=== PATIENT | female | born 1945 | race Caucasian/White ===

== ENCOUNTER 2018-12-19 10:27 | Day surgery (SDC) | payer MEDICARE, OTHER, SELFPAY ==
[2018-12-19 10:48] VITALS: BP 178/120; PULSE 124; RESP 20; TEMP 36.3; O2SAT 99; BMI 32.5
[2018-12-19] MEDS: PROPARACAINE 0.5% OPHTH SOL 2 DROPS EYE-LEFT (11:00)
[2018-12-19] MEDS: CATARACT EYE COMPOUND (10 DROPS/SYRINGE) 3 DROPS EYE-OP (11:14)
--- NOTE | 2018-12-19 11:22 | SUR.PREOP ---
Pt HR 110-130 a fib with BP 180-190s/110-120s. Md Thao at bedside administering IV versed and IV metoprolol. Pt connected to bedside surveillance system monitor to continuously monitor HR and vital signs.
[2018-12-19] MEDS: MOXIFLOXACIN INJ 5 MG/ML VIAL EYE-OP (12:06)
[2018-12-19] MEDS: LIDOCAINE 2% INJ SDV 2 ML INJ (12:06)
[2018-12-19] MEDS: PHENYLEPHRINE/LIDOCAINE VIAL (OR) 0.2 ML EYE-OP (12:06)
[2018-12-19] MEDS: BALANCED SALT IRRIG SOLN NO.2 500 ML, EPINEPHrine 1 MG IRR (12:07)
[2018-12-19] MEDS: TETRACAINE 0.5% OPHTH DROPS 4 ML 2 DROPS EYE-OP (12:07)
[2018-12-19] MEDS: BALANCED SALT IRRIG SOLN NO.2 15 ML 5 ML IRR (12:08)
[2018-12-19] MEDS: CHONDROIDTIN/SOD HYALURONATE 1.05 ML SYRINGE INTRAOCULA (12:08)
--- NOTE | 2018-12-19 12:23 | PM.OP.1 ---
Procedure & Clinicians Procedure: Cataract extraction with intraocular lens implant, left Indications: Age related nuclear cataract, left Surgeon: Stas Gottlieb Click Yes if Unassisted: Yes Anesthesia Type: MAC +/- Operative Notes Procedure in detail: The patient was brought to the operating suite. The correct patient, surgical site and lens were confirmed. 0.5 % tetracaine drops were placed in the left eye. The patient was prepped and draped in the typical sterile manner. A lid speculum was placed in the eye. 2% lidocaine was placed on the eye. A paracentesis port was created with a side-port blade. 0.1 mL of 1% preservative free lidocaine with phenylephrine was injected into the anterior chamber. Viscoelastic was injected into the anterior chamber. A 2.6mm keratome was used to create a clear corneal temporal incision. Cystotome and Utrata forceps were used to create a continuous curvilinear capsulorrhexis. Balanced salt solution was used to hydrodissect the nucleus. Phacoemulsification was used to remove the lens. The capsular bag was inflated with viscoelastic. A Rodríguez ZCBOO +23.5D lens was inserted into the capsule. Viscoelastic was removed and the wound hydrated. The wound was found to be leak free and the eye was assessed to be at normal physiologic pressure. 0.1mL Vigamox was injected into the anterior chamber. The lid speculum was removed and the patient left the operating room in excellent condition. Complications: none Post-operative Condition: stable Disposition: same day surgery
[2018-12-19 12:40] VITALS: BP 159/107; PULSE 89; RESP 16; TEMP 36.1; O2SAT 98
== END 2018-12-19 12:53 | disposition home or self-care (01) ==
LOC: OR 10:30
PROVIDERS: Family Provider Family Medicine; PCP Orthopaedic Surgery; Visit Provider Ophthalmology
PROC: (CPT 66984; principal; 2018-12-19 11:30)
DX: H25.12 Age-related nuclear cataract, left eye (principal); H35.363 Drusen (degenerative) of macula, bilateral
CPT/HCPCS: 66984; J0171; J2250; J3010

== ENCOUNTER 2019-01-02 11:56 | Day surgery (SDC) | payer MEDICARE, OTHER, SELFPAY ==
[2019-01-02 12:14] VITALS: BP 190/103; PULSE 129; RESP 12; TEMP 36.4; O2SAT 97; BMI 30.4
[2019-01-02] MEDS: PROPARACAINE 0.5% OPHTH SOL 2 DROPS EYE-OP (12:25)
[2019-01-02] MEDS: METOPROLOL TARTRATE 5 MG/5 ML INJ IV (12:28)
--- NOTE | 2019-01-02 12:31 | PM.PREOP ---
Pre-operative Note Interval Note History & Physical reviewed/Exam performed by Physician: Yes Changes to H&P: No
[2019-01-02] MEDS: CATARACT EYE COMPOUND (10 DROPS/SYRINGE) 3 DROPS EYE-OP (12:32)
[2019-01-02 12:33] VITALS: BP 172/123; PULSE 101; RESP 9; O2SAT 96
[2019-01-02 12:40] VITALS: BP 171/109; PULSE 99; RESP 14; O2SAT 95
--- NOTE | 2019-01-02 12:56 | SUR.PREOP ---
pt taken into the OR in stable condition.
[2019-01-02] MEDS: BALANCED SALT IRRIG SOLN NO.2 15 ML 5 ML IRR (13:02)
[2019-01-02] MEDS: MOXIFLOXACIN INJ 5 MG/ML VIAL EYE-OP (13:03)
[2019-01-02] MEDS: PHENYLEPHRINE/LIDOCAINE VIAL (OR) 0.2 ML EYE-OP (13:03)
[2019-01-02] MEDS: CHONDROIDTIN/SOD HYALURONATE 1.05 ML SYRINGE INTRAOCULA (13:03)
[2019-01-02] MEDS: LIDOCAINE 2% INJ SDV 2 ML INJ (13:03)
[2019-01-02] MEDS: TETRACAINE 0.5% OPHTH DROPS 4 ML 2 DROPS EYE-OP (13:03)
[2019-01-02] MEDS: BALANCED SALT IRRIG SOLN NO.2 500 ML, EPINEPHrine 1 MG IRR (13:04)
--- NOTE | 2019-01-02 13:31 | PM.OP.1 ---
Procedure & Clinicians Procedure: Cataract extraction with intraocular lens implant, right Same procedure as scheduled: Yes Indications: Age related nuclear cataract, right Surgeon: Stas Gottlieb Click Yes if Unassisted: Yes Anesthesia Type: MAC +/- Operative Notes Procedure in detail: The patient was brought to the operating suite. The correct patient, surgical site and lens were confirmed. 0.5 % tetracaine drops were placed in the right eye. The patient was prepped and draped in the typical sterile manner. A lid speculum was placed in the eye. 2% lidocaine was placed on the eye. A paracentesis port was created with a side-port blade. 0.1 mL of 1% preservative free lidocaine with phenylephrine was injected into the anterior chamber. Viscoelastic was injected into the anterior chamber. A 2.6mm keratome was used to create a clear corneal temporal incision. Cystotome and Utrata forceps were used to create a continuous curvilinear capsulorrhexis. Balanced salt solution was used to hydrodissect the nucleus. Phacoemulsification was used to remove the lens. The capsular bag was inflated with viscoelastic. A Rodríguez ZCBOO +23.5D lens was inserted into the capsule. Viscoelastic was removed and the wound hydrated. The wound was found to be leak free and the eye was assessed to be at normal physiologic pressure. 0.1mL Vigamox was injected into the anterior chamber. The lid speculum was removed and the patient left the operating room in excellent condition. Complications: none Post-operative Condition: stable Disposition: same day surgery
[2019-01-02 13:48] VITALS: BP 142/92; PULSE 81; RESP 16; TEMP 36.2; O2SAT 97
== END 2019-01-02 13:51 ==
LOC: OR 11:58
PROVIDERS: PCP Family Medicine; Visit Provider Ophthalmology
PROC: (CPT 66984; principal; 2019-01-02 13:00)
DX: H25.11 Age-related nuclear cataract, right eye (principal)
CPT/HCPCS: 66984; J0171; J2250; J3010

== ENCOUNTER → 2021-06-13 10:17 | Outpatient (CLI) | payer MEDICARE, OTHER, SELFPAY ==
[2021-06-13 15:10] LABS: COVID19 -Nasal RAPID Negative (Negative)
== END ==
PROVIDERS: PCP Family Medicine; Visit Provider Physical Medicine & Rehabilitation
DX: Z20.822 Contact with and (suspected) exposure to COVID-19 (principal)
CPT/HCPCS: 87635; C9803

== ENCOUNTER 2021-06-15 12:33 | Observation (INO) | payer MEDICARE, OTHER, SELFPAY ==
[2021-06-08 14:14] VITALS: BMI 34.0
[2021-06-14] VITALS (12 sets, daily range): BP systolic 124–178; BP diastolic 71–106; PULSE 84–114; RESP 12–22; TEMP 36.1–37; O2SAT 95–99; BMI 34.0
--- NOTE | 2021-06-14 06:42 | DI.RAD.S_ITS ---
PROCEDURE: XR KNEE RT 1TO2V INDICATIONS: TOTAL RIGHT KNEE. TECHNIQUE: 2 view(s) of the knee acquired. COMPARISON: None. FINDINGS: Bones: Patient is status post knee joint arthroplasty. Hardware components are in expected positions. Visualized bony structures are intact. Soft tissues: Overlying postoperative changes are noted. IMPRESSION: Status post right total knee arthroplasty. Dictated by: Gail Cotton M.D. on 06/14/2021 at 14:36 Approved by: Gail Cotton M.D. on 06/14/2021 at 14:36
[2021-06-14] MEDS: LACTATED RINGERS 1,000 ML 42 ML IV ×2 (07:06→08:55)
[2021-06-14] MEDS: ACETAMINOPHEN 325 MG TABLET 975 MG PO (07:07)
[2021-06-14] MEDS: VANCOMYCIN 1,000 MG/200 ML PIGGYBACK 200 MG IV (07:07)
--- NOTE | 2021-06-14 07:36 | SUR.OPER ---
Supine on padded OR bed. Pillow under head, arms secured on padded armboards <90 degree abduction. Safety belt across torso. Non-operative leg secured with tape over blanket over lower leg. Operative leg secured in DeMayo/Jad/Nathe positioner. Foam padded brace at thigh of operative leg.
--- NOTE | 2021-06-14 07:39 | PM.PREOP ---
Pre-operative Note COVID-19 COVID-19 status: Negative Interval Note History & Physical reviewed/Exam performed by Physician: Yes Changes to H&P: No H&P completed within 30 days and has changed as indicated here:: PT (inr) pending
--- NOTE | 2021-06-14 07:40 | P.OP_ITS ---
Operative Date/Time/Diagnoses Date of procedure: 06/14/21 Time of procedure: 07:55 Pre-op diagnosis: right knee oa Post-op diagnosis: same Procedure & Clinicians Procedure: right total knee arthroplasty Same procedure as scheduled: Yes Indications: The patient has had progressively worsening right knee pain with radiographic changes consistent with arthritis. Non-operative management has failed and the patient has requested total knee replacement. The risks, benefits and alternatives to surgery were discussed with the patient prior to proceeding. Risks discussed included, but were not limited to, failure to relieve pain, stiffness, infection, nerve damage, deep venous thrombosis, pulmonary embolism, stroke, coma, heart attack, permanent paralysis and , as well as the potential need for eventual revision of the prosthetic. Surgeon: Carolann Trujillo Informal Waiter/Waitress: Martha Bronson Anesthesia Type: General and Spinal Operative Notes Findings: Severe right knee osteoarthritis, acceptable balance and alignment Closure Type: primary Specimen(s): none sent Prosthetic devices, grafts, tissues, transplants, or devices: Trujillo and Nephew Journey BCS 2 size 6 femur, size 4 tibia, +12 poly, 35 mm patella Applied: drain(s) Estimated Blood Loss (mL): 250 Blood products transfused: none Tourniquet time (min): 64 Procedure in detail: The patient was seen in the pre-operative area, where the patient identified the right knee as the operative site and this was marked with my initials. The patient received pre-operative antibiotics, and was taken to the operating room and placed on the operative table in the supine position. After satisfactory anesthesia, a oncology pharmacist out was performed. The right leg was encircled with a tourniquet about the proximal thigh, and the leg was prepared from the toes to the tourniquet with ChloroPrep in the usual fashion and draped through sterile drapes. The leg was elevated and exsanguinated with Eschmark bandage and the tourniquet inflated to [250] mmHg pressure. The knee was approached through an approximately 18 cm incision centered over the patella and carried into the knee through a medial parapatellar arthrotomy. A portion of the medial and lateral meniscus was resected. Soft tissue was carefully mobilized around the patella the patella was measured with a caliper. Bone was resected from the patella and the patellar height was reconstituted with up an appropriate sized patellar component. A cover was then placed on the patella. A small amount of additional medial and lateral meniscus was resected. The tourniquet was clearly a venous tourniquet and was deflated. The distal femur was cut at 5?. A [+2] cut was used. It looked like an appropriate distal femoral cut and the cut was made without difficulty. An extramedullary guide was used for the tibial cut. 10 mm was resected off the least affected side.The tibia was prepared. The rotation was assessed. The patient was placed in extension residual medial and lateral meniscus as well as any residual bone was carefully resected. [No] additional tibia was resected. Hemostasis was achieved especially posteriorly. Additional local was injected into the posterior capsule. The extension gap was assessed and additional releases for gap balancing were performed as necessary. It was checked with the gap truck manager. The femoral component was trial was placed and the notch was finished. The rotation was assessed and the appropriate size femoral guide was placed on the distal femur and finishing cuts were made. There was no evidence of notching. The anterior, posterior and chamfer cuts were then made. The posterior osteophytes and soft tissues were then removed. The posterior capsule was injected with part of a mixture of 60 ml 0.25% Marcaine mixed with 20 ml Exparel for post operative pain control. The remainder of this mixture was injected into the capsule and subcutaneous tissues during cement curing. The tibial and femoral components were then placed and the knee placed through a range of motion. Range of motion was [0-130], with good stability throughout the range. She had some mild medial laxity but her medial collateral ligament was clearly intact. The tourniquet was inflated during cementing. The trials were then removed, and the tibia was finished. The bone was prepared with pulsatile lavage, and dried with a sponge. Cement was applied and the final prosthetics placed. Excess cement was removed during and after cement curing. A brief Betadine soak was performed. After confirming there was no extruded cement posteriorly, the final tibial insert was placed. The knee was copiously irrigated and the tourniquet deflated. Hemostasis was obtained with the Bovie cautery. A drain was placed and brought out superolaterally. The capsule was closed with interrupted nonabsorbable suture. The subcutaneous layer was closed with barbed sutures, and the skin with a running 3-0 V-Lock suture and Surgical glue. An Aquacel Ag dressing was applied and the patient was taken to recovery having tolerated the procedure well. Complications: none Post-operative Condition: stable Disposition: Acute Care Plan for aftercare: The patient will be maintained on a standard total knee replacement protocol with weight bearing as tolerated. The patient will receive warfarin and sequential compression devices for DVT prophylaxis. The patient will be discharged home when safe for the home environment.
[2021-06-14] MEDS: CEFAZOLIN 2 GM/20 ML SYRINGE IV ×2 (08:16→16:31)
[2021-06-14] MEDS: TRANEXAMIC ACID 1,000 MG VIAL 2000 MG INJ ×2 (08:17→09:46)
[2021-06-14] MEDS: BUPIVACAINE LIPOSOME 266 MG/20 ML VIAL INJ (08:28)
[2021-06-14] MEDS: BUPIVACAINE 0.25% (PF) 60 ML, EPINEPHrine 0.3 MG INJ (08:29)
[2021-06-14] MEDS: SODIUM CHLORIDE IRRIG SOLUTION 250 ML, POVIDONE-IODINE SPONGE STICKS 1 APPLIC IRR (08:30)
--- NOTE | 2021-06-14 10:43 | SUR.PHASEI ---
Report called to Bon LISA. Pt going to rm 211.
[2021-06-14] MEDS: LACTATED RINGERS 1,000 ML 100 ML IV ×2 (11:39→22:08)
--- NOTE | 2021-06-14 14:15 | PT.IIE ---
Current Diagnoses Unilateral primary osteoarthritis, right knee (06/14/21) Surgery Performed Operation Date: 06/14/21 07:45 Actual Procedures p Total Knee Arthroplasty(Right) - Carolann Trujillo MD Medical History (Last Updated 05/31/21 @ 07:54 by Margarita Reynaga RN) Afib Cardiomyopathy Diverticulitis Diverticulosis Easy bruisability Eczema HTN (hypertension) Physical Therapy Inpatient Evaluation/Re-Eval M1 PT/OT-IP Prior Functional Status Start: 06/14/21 15:56 Freq: NEEDED Status: Active Protocol: Document 06/14/21 14:15 AB (Rec: 06/14/21 16:08 AB [id number]) Medical Review Prior Functional Status Medical History Reviewed Yes Communication able to make needs known Mobility and Gait pt stated that she is independent with all mobilities and ambulation without AD indoors but tends to furniture cruise; uses SPC or walking stick for outdoor mobility Social History Household Members spouse Living Arrangements House Number of Floors (Floors) One Floor Number of Stairs To Enter/Railing? 2 steps without rails + 1 platform step to enter the house Home Environment Standard Height Toilet Home Equipment Front Wheel Walker,Straight Cane,Hand Held Shower,Grab Bars Near Toilet,Grab Bars In Shower M2 PT-IP Current Condition Start: 06/14/21 15:56 Freq: NEEDED Status: Active Protocol: Document 06/14/21 14:15 AB (Rec: 06/14/21 16:08 AB [id number]) Physical Therapy Current Condition Current Condition Evaluation Date 06/14/21 Treatment Diagnosis s/p R TKA; difficulty in walking Onset Date 06/14/21 M3 PT-IP Subjective Start: 06/14/21 15:56 Freq: NEEDED Status: Active Protocol: Document 06/14/21 14:15 AB (Rec: 06/14/21 16:08 AB [id number]) Subjective Physical Therapy Visit Type Type Initial Evaluation Visit Start Time 14:15 Visit Stop Time 15:05 Total Visit Minutes 50 Number of TRAFFIC WORKFORCE REPRESENTATIVE Visits 0 Physical Therapy Visit Comments Patient Comments requesting to use the toilet Therapy Pain Assessment Pain When Pain Assessed At Rest Pain Present Pain Present Pain Reported Location Right Knee Intensity 3 Scale Used increases to 5/10 with mobility Pain Management Techniques Apply Cold,Elevation, Modification of Treatment,Re- positioning,Timing of Activity with Medications M4 PT-IP Mobility and Gait Start: 06/14/21 15:56 Freq: NEEDED Status: Active Protocol: Document 06/14/21 14:15 AB (Rec: 06/14/21 16:08 AB [id number]) PT-Bed Mobility Assessment Supine to Sit Supine to Sit Standby Assistance Sit to Supine Sit to Supine Standby Assistance PT-Transfer Assessment Sit to and From Stand Sit to and from Stand Moderate Assistance,1 Person Assistance,Use of Upper Extremities Equipment Transfer Assistive Device Gait Belt,Front Wheeled Walker Orthotic/Prosthetic Devices or Brace: No Transfers Transfer Destination Bedside Commode Transfer Technique Stand Step Pivot Transfer Ability Level of Assist Moderate Assistance,1 Person Assistance,Use of Upper Extremities Comments Mobility Comments BP 179/119. nurse gave pt BP meds. pt requested to use the toilet. bedside commode positioned next to pt. pt completed supine to sit SBA. able to sit on EOB SBA. BP: 182/113. completed sit to stand mod A and cues for R quads activation due to slight buckling. pt completed step transfer to bedside commode using fWW mod A and cues. completed sit to stand from commode mod A and NAC assisted with hygiene care and brief management. pt took a few steps towards HOB using FWW mod A and cues. completed sit to supine SBA. opted not to ambulate pt due to high BP. BP checked: 168/90. positioned pt in bed. Call light and table placed within reach. Caregiver training set up tomorrow. pt stated that she will call her spouse to come in at 9am since [place] a 210pm ferry back home. Gait Assessment Gait Gait Assistance Required: Moderate Assistance Distance (Feet) 2 Able to Maintain Weight Bearing Status Yes During Gait Assistive Devices Assistive Device Gait Belt,Front Wheeled Walker Comments Gait Comments steps during transfer PT-Balance Assessment Sitting Balance and Reactions Static Sitting Balance Ability Good Dynamic Sitting Balance Ability Good Standing Balance and Reactions Static Standing Balance Ability Fair Dynamic Standing Balance Ability Fair Device Used FWW M5 PT-IP Objective Assessments Start: 06/14/21 15:56 Freq: NEEDED Status: Active Protocol: Document 06/14/21 14:15 AB (Rec: 06/14/21 16:08 AB [id number]) Orientation Orientation/Cognition Level of Alertness Alert Orientation Name,Place,Situation Language Function Ability No Deficits Noted Safety Awareness Decreased Safety Awareness Memory Description Short Term Impaired Gross Range of Motion Lower Extremity ROM Assessment Right Impaired Impairments R flexion ~ 70 deg with c/o pain Strength Lower Extremity Strength Assessment Right Impaired Hip 4-/5 Knee 3+/5 Sensation Assessment Sensation Gross Sensation WNL Muscle Tone Muscle Tone WNL Yes M6 PT-IP Treatment Start: 06/14/21 15:56 Freq: NEEDED Status: Active Protocol: Document 06/14/21 14:15 AB (Rec: 06/14/21 16:08 AB [email or web address]) Physical Therapy Treatment Education Education Provided Precautions,Weight Bearing Status,Post-Op Packet,Safety M7 PT-IP Assessment and Plan Start: 06/14/21 15:56 Freq: NEEDED Status: Active Protocol: Document 06/14/21 14:15 AB (Rec: 06/14/21 16:08 AB [email or web address]) PT Summary Assessment and Plan Potential Rehabilitation Potential Good Status of Condition at Evaluation Evolving Summary Impairments Pain,ROM,Strength,Balance, Coordination,Sensation,Tone, Cognition,Bed Mobility, Transfers,Gait,Activity Tolerance Assessment Summary pt s/p R TKA and just had surgery this morning. pt requiring mod A with mobility with slight R knee buckling in standing and required assist and cues for quad activation. Pt also has high BP and mobility limited due to this. Caregiver training set up for tomorrow at 9am. will continuet o assess progress. Goals Bed Mobility Goal Independent Transfer Goal Independent,Front Wheeled Walker Gait Goal Independent,Front Wheel Walker Gait Distance 150 Other Goals up/dpwn platform walker using FWW CGA up/down 1 steps using SPC/BUS DRIVER SUPERVISOR min A Days to Meet Goals 5 Frequency of Treatment Frequency Of Treatment Twice a Day Treatment Plan Physical Therapy Treatment Plan Bed Mobility Training,Transfer Training,Gait Training, Therapeutic Exercise,Balance Retraining,Post Op Education, Discharge Planning,Hot or Cold Pack,Neuromuscular Re-ed, Coordination Retraining,Manual Therapy Weight Bearing Status Weight Bearing Status Weight Bear as Tolerated Allowed Weight Bearing Amount (enter % RLE WBAT or #) (%) Recommendations To Nursing Amount of Assist Needed 1 Person Assist Discharge Recommendations PT Discharge Recommendations Home with Assistance, Outpatient PT Transportation Needs at Discharge Private Vehicle,Wheelchair/ Cabulance
[2021-06-14] MEDS: IBUPROFEN 400 MG TABLET PO ×3 (14:21→22:03)
[2021-06-14] MEDS: ACETAMINOPHEN 325 MG TABLET 650 MG PO ×2 (14:22→22:02)
[2021-06-14] MEDS: carvediloL 12.5 MG TABLET PO ×2 (14:24→22:06)
--- NOTE | 2021-06-14 14:35 | PC.NURSE ---
Addendum entered by Bon Estrada R.N. 06/14/21 14:46: Dr. Trujillo notified of elevated blood pressure/heart rate, one time dose of coreg to be given now, then resume schedule as ordered. Will continue to follow. Original Note: Patient received post op from PACU approx. 1055am, VSS, oriented to room and call light. Patient denies pain. AUGUST dressing in place to right knee, CDI. Hemovac in place, compressed and clamped (to be unclamped at 1130am/completed). Call light placed within reach, fall precautions reviewed with patient. Denies n/v. Continue to monitor.
[2021-06-14] MEDS: OXYCODONE IR 5 MG TABLET PO ×2 (15:14→22:01)
[2021-06-14] MEDS: WARFARIN 5 MG TABLET PO (22:04)
[2021-06-14] MEDS: DOCUSATE 100 MG CAPSULE PO (22:04)
[2021-06-14] MEDS: ASPIRIN EC 81 MG TABLET PO (22:04)
[2021-06-14] MEDS: LOSARTAN 25 MG TABLET PO (22:07)
[2021-06-15] VITALS (8 sets, daily range): BP systolic 105–144; BP diastolic 60–86; PULSE 75–98; RESP 16–21; TEMP 36.1–36.7; O2SAT 92–100
[2021-06-15] MEDS: CEFAZOLIN 2 GM/20 ML SYRINGE IV (01:10)
--- NOTE | 2021-06-15 02:30 | RT ---
PT WAS ASLEEP NO DISTRESS NOTED . ASSESMENT TO BE DONE
[2021-06-15] MEDS: IBUPROFEN 400 MG TABLET PO ×3 (04:48→20:30)
[2021-06-15 05:36] LABS: Hematocrit 32.3 % (36-46); Hemoglobin 11.4 g/dL (12.0-16.0)
[2021-06-15] MEDS: OXYCODONE IR 5 MG TABLET PO ×3 (06:04→19:39)
--- NOTE | 2021-06-15 08:55 | PM.DS.1 ---
History of Present Illness History of Present Illness Date Patient Seen: 06/15/21 Time Patient Seen: 08:55 Chief complaint: R TKA *OPB* Narrative: Operative Date/Time/Diagnoses Date of procedure: 06/14/21 Time of procedure: 07:55 Pre-op diagnosis: right knee oa Post-op diagnosis: same Procedure & Clinicians Procedure: right total knee arthroplasty Same procedure as scheduled: Yes Indications: The patient has had progressively worsening right knee pain with radiographic changes consistent with arthritis. Non-operative management has failed and the patient has requested total knee replacement. The risks, benefits and alternatives to surgery were discussed with the patient prior to proceeding. Risks discussed included, but were not limited to, failure to relieve pain, stiffness, infection, nerve damage, deep venous thrombosis, pulmonary embolism, stroke, coma, heart attack, permanent paralysis and , as well as the potential need for eventual revision of the prosthetic. Surgeon: Carolann Trujillo [employer] Certified Network Associate: Martha Bronson Anesthesia Type: General and Spinal Operative Notes Findings: Severe right knee osteoarthritis, acceptable balance and alignment Closure Type: primary Specimen(s): none sent Prosthetic devices, grafts, tissues, transplants, or devices: Trujillo and Nephew Journey BCS 2 size 6 femur, size 4 tibia, +12 poly, 35 mm patella Applied: drain(s) Estimated Blood Loss (mL): 250 Blood products transfused: none Tourniquet time (min): 64 Discharge Providers Provider Date of admission: 06/14/2021 Discharge Date: 06/15/21 Primary care physician: Beata Guerrero MD Consults: 05/31/21 08:00 Consult to Anesthesiology Routine Comment: Consulting Provider: Anesthesiologist Reason for consultation: Surgeon requested re:Cardiac 06/14/21 06:42 Consult to Anesthesiology Routine Comment: Consulting Provider: Anesthesiologist Reason for consultation: Regional block for post operative pain control 06/14/21 11:00 Consult to Discharge Planning Routine Comment: Consult to Physical Therapy Evaluate & Treat Comment: Physician Instructions: postop TKA protocol Consult to Respiratory Therapy Evaluate & Treat Comment: Physician Instructions: Evaluate and treat Discharge provider: Porsche Cunningham PA-C Summary Hospital Course Discharge Diagnosis: s/p R TKA Hospital Course: Ms Walker's hospital course was unremarkable. On POD# 1 she was feeling well and very much wanted to go home. She was eating and voiding without difficulty. PT evaluated her prior to discharge. Exam Vital Signs (past 8 hours): - 06/15/21 06:04 06/15/21 07:30 Temperature 97.0 F L 97.1 F L Pulse Rate 80 94 H Respiratory Rate 16 19 Blood Pressure 131/76 113/69 Pulse Oximetry 98 97 Oxygen Delivery Method Room Air Oxygen Flow Rate 0 Narrative Exam Narrative: 5/5 strength in hip flexors, quadriceps, hamstrings, DF, PF, EHL bilaterally. Sensation to light touch intact throughout BLE. Calves soft, compressible, nontender, and without palpable cords or masses. Const General: cooperative and healthy appearing Orientation: alert, awake and oriented x3 Objective Labs Result Diagrams: 06/15/21 05:20 Labs: Laboratory Results - last 24 hr 06/15/21 05:20 Hgb 11.4 L Hct 32.3 L PFSH Medical History (Updated 05/31/21 @ 07:54 by Margarita Reynaga RN) Afib Cardiomyopathy Diverticulitis Diverticulosis Easy bruisability Eczema HTN (hypertension) Surgical History (Updated 06/15/21 @ 08:43 by Porsche Cunningham PA-C) History of total left knee replacement (2012) Hx of bilateral cataract extraction Hx of left breast biopsy Hx of tonsillectomy Hx of varicose vein stripping Social History household members: spouse Smoking Status: Former smoker alcohol intake: current Discharge Assessment & Plan Assessment and Plan Assessment: 1) POD# 1 s/p right total knee arthroplasty. 2) Acute anemia d/t expected surgical blood loss. 3) H/o a fib w/ chronic anticoagulation 4) H/o obesity Plan of Treatment: 1) D/c home, multimodal pain control, outpt PT 2) Asymptomatic, no intervention needed. 3) Bridge w/ enoxaparin x 5 days starting today. Pt to follow up w/ anticoagulation clinic. Enoxaparin/warfarin adequate for post-surgical VTE prophylaxis. Discharge Plan Discharge Plan Patient Disposition: Home Discharge orders & Medications Discharge Orders: Discharge (Order); Ordered 06/15/21 Ordered By: Porsche Cunningham Prescriptions: New oxycodone 5 mg Tablet 5 mg PO Q4H PRN (Reason: pain, severe) Qty: 60 0RF docusate sodium 100 mg Capsule 100 mg PO BID PRN (Reason: constipation) Qty: 60 2RF enoxaparin 40 mg/0.4 mL syringe 40 mg SUBCUT DAILY Qty: 1.6 0RF Continued carvedilol 12.5 mg Tablet 12.5 mg PO BID 0RF Rx Instructions: must administer with a meal/food losartan 25 mg Tablet 25 mg PO BEDTIME 0RF acetaminophen 500 mg Capsule 500 - 1,000 mg PO DAILY PRN (Reason: Pain) 0RF warfarin 5 mg Tablet 5 mg PO BEDTIME 0RF Follow up/Referrals: Beata Guerrero MD [Primary Care Provider] - Carolann Trujillo MD [Physician] - As previously scheduled (Follow up with Dr Trujillo on 06/29/2021 @ 11:00 am at [facility] in [place].) Diet/Activity/Treatments Diet: Diet as Tolerated Activity: Walk frequently! Cold/Heat Therapy: Ice to knee as needed for pain. Other treatments: Take enoxaparin injections in the morning AND warfarin as prescribed by anticoag clinic provider. Call anticoagulation clinic and follow up with them in next 3-5 days if you do not already have an appointment scheduled. Skin/Wound/Dressing Care Report to your healthcare provider any signs of infection, such as:: chills, fever, night sweats, increased pain, unusual drainage and unusual redness Dressing: May shower. Leave dressing in place until follow up appointment. When battery expires and starts beeping, you may cut the battery pack off. No bathing or otherwise soaking incision. Visit Report/Discharge Packet Instructions: DI for Knee Replacement Stand Alone Forms: Surgery Discharge Discharge Data Primary Care Provider: Beata Guerrero Attending Provider: Carolann Trujillo
--- NOTE | 2021-06-15 09:39 | PT.IPTN ---
Current Diagnoses Unilateral primary osteoarthritis, right knee (06/14/21) Presence of right artificial knee joint (06/14/21) Surgery Performed Operation Date: 06/14/21 07:45 Actual Procedures p Total Knee Arthroplasty(Right) - Carolann Trujillo MD Physical Therapy Treatment Note M2 PT-IP Current Condition Start: 06/14/21 15:56 Freq: NEEDED Status: Active Protocol: Document 06/15/21 09:05 SP (Rec: 06/15/21 10:12 SP [id number]) Physical Therapy Current Condition Current Condition Evaluation Date 06/14/21 Treatment Diagnosis s/p R TKA; difficulty in walking Onset Date 06/14/21 M3 PT-IP Subjective Start: 06/14/21 15:56 Freq: NEEDED Status: Active Protocol: Document 06/15/21 09:05 SP (Rec: 06/15/21 10:12 SP [id number]) Subjective Physical Therapy Visit Type Type Treatment Note Visit Start Time 09:05 Visit Stop Time 09:39 Total Visit Minutes 34 Notes present when arrived, initiated CGT including don gait belt, and CGA during transfer and gait as needed. Vitals taken during tx: seated at EOB: BP 150/81 HR 83 SaO2 100%. Standing and short distance gait in room: denied dizziness Seated in w/c after report dizziness: BP 118/? just before syncope episode. Vitals supine in bed after syncope episode: see nursing vitals. Physical Therapy Visit Comments Patient Comments Pt agreed to working with therapy. Patient Goals Return home with to assist her. Therapy Pain Assessment Pain When Pain Assessed At Rest Pain Present Pain Present Pain Reported Location Right Knee Scale Used no pain at rest, not alot stated with mobility Description With Movement Pain Behaviors Facial Grimacing Pain Management Techniques Modification of Treatment,Re- positioning,Timing of Activity with Medications M4 PT-IP Mobility and Gait Start: 06/14/21 15:56 Freq: NEEDED Status: Active Protocol: Document 06/15/21 09:05 SP (Rec: 06/15/21 10:12 SP [id number]) PT-Bed Mobility Assessment Supine to Sit Supine to Sit Standby Assistance Sit to Supine Sit to Supine Total Assistance Scooting Scooting to Edge of Bed Standby Assistance Scooting Up and Down in Bed Dependent PT-Transfer Assessment Sit to and From Stand Sit to and from Stand Contact Guard Assistance,1 Person Assistance,Use of Upper Extremities Equipment Transfer Assistive Device Gait Belt,Front Wheeled Walker Orthotic/Prosthetic Devices or Brace: No Transfers Transfer Destination Bed,Wheelchair Transfer Technique pt ambulated using FWW Transfer Ability Level of Assist Contact Guard Assistance,1 Person Assistance,Use of Upper Extremities Comments Mobility Comments INDUSTRIAL SAFETY AND HEALTH MANAGER instructed postop ex: AP, quad sets, discussed HS but not performed. completed supine>sit SBA w/ use HR. VItal assessment elevated BP seated at EOB, pt reported didn't take BP meds this am. Pt agreeableto mobilizing. donned gait belt. Sit> stand CGA cues use HEP of bed and FWW. Pt reports feeling good in standing, denied dizziness, progressed gait across room to door, stable RLE during mid stance and step over step, cued CGA GB for safety. When pt outside door stated feeling little light headed, requested to sit . INDUSTRIAL SAFETY AND HEALTH MANAGER provided w/c CG- Min A to sit in w/c. Pt reported progressive dizziness and wanted to go lay down. INDUSTRIAL SAFETY AND HEALTH MANAGER and assisted pt wheeled to EOB 3 ft distance to EOB. Pt became unresponsive, INDUSTRIAL SAFETY AND HEALTH MANAGER assisted pt's head from tilting backward and trunk limp in w/c. INDUSTRIAL SAFETY AND HEALTH MANAGER called rapid response and nursing team arrived to assist. Team provided pt support to kasey transfer w/c to bed. Pt became unresponsive 2nd time with forceful CS and LS extension, INDUSTRIAL SAFETY AND HEALTH MANAGER blocked LEs to prevent sliding out of chair and head/ neck support. INDUSTRIAL SAFETY AND HEALTH MANAGER continuously talking to pt to speak and breath. Pt came to and speak with more appropriate responses, completing transfered to bed. Nursing staff continued vital assessment. INDUSTRIAL SAFETY AND HEALTH MANAGER provided SCDs, donned bed alarm. INDUSTRIAL SAFETY AND HEALTH MANAGER provided education with . Not safe for DC at time time. Nursing will continue to assess medically and INDUSTRIAL SAFETY AND HEALTH MANAGER will return in pm for further assessment if safe. Gait Assessment Gait Gait Assistance Required: Contact Guard Assist,1 Person Assist Distance (Feet) 15 Able to Maintain Weight Bearing Status Yes During Gait Assistive Devices Assistive Device Gait Belt,Front Wheeled Walker Orthotic/Prosthetic Devices or Brace: No Gait Deviations General Gait Pattern Antalgic,Decreased Feet Clearance Factors Limiting Gait Function Factors Limiting Gait Function Decreased Activity Tolerance, Decreased Strength,Pain,Poor Balance Comments Gait Comments Step over step slightly smaller stride, occasional cues for R quad facilitation during WB, min- Mod WB through FWW, stable RLE during LLE swing through bed to PF outside room. Stair Climbing Assessment Comments Stair Climbing Comments Unable to assess due to lightheadedness and syncope episode. Will assess if ok try in afternoon. PT-Balance Assessment Sitting Balance and Reactions Static Sitting Balance Ability Good Dynamic Sitting Balance Ability Good Standing Balance and Reactions Static Standing Balance Ability Fair Dynamic Standing Balance Ability Fair Device Used FWW M5 PT-IP Objective Assessments Start: 06/14/21 15:56 Freq: NEEDED Status: Active Protocol: Document 06/14/21 14:15 AB (Rec: 06/14/21 16:08 AB [id number]) Orientation Orientation/Cognition Level of Alertness Alert Orientation Name,Place,Situation Language Function Ability No Deficits Noted Safety Awareness Decreased Safety Awareness Memory Description Short Term Impaired Gross Range of Motion Lower Extremity ROM Assessment Right Impaired Impairments R flexion ~ 70 deg with c/o pain Strength Lower Extremity Strength Assessment Right Impaired Hip 4-/5 Knee 3+/5 Sensation Assessment Sensation Gross Sensation WNL Muscle Tone Muscle Tone WNL Yes M6 PT-IP Treatment Start: 06/14/21 15:56 Freq: NEEDED Status: Active Protocol: Document 06/15/21 09:05 SP (Rec: 06/15/21 10:12 SP [id number]) Physical Therapy Treatment Exercises Exercises Ankle Pumps,Quad Sets,Heel Slides,Seated Knee Flexion/ Extension Education Education Provided Precautions,Weight Bearing Status,Post-Op Packet,Safety M7 PT-IP Assessment and Plan Start: 06/14/21 15:56 Freq: NEEDED Status: Active Protocol: Document 06/15/21 09:05 SP (Rec: 06/15/21 10:12 SP [id number]) PT Summary Assessment and Plan Potential Rehabilitation Potential Good Status of Condition at Evaluation Evolving Summary Impairments Pain,ROM,Strength,Balance, Coordination,Sensation,Tone, Cognition,Bed Mobility, Transfers,Gait,Activity Tolerance Progress Towards Goals Slow Progress due to Medical Issues,Slow Progress due to Activity Tolerance Assessment Summary Pt improved in transfers and gait initially SBA bed mob, CGA gait and transfer w/ FWW. Pt became lightheaded, dizzy provided sit in w/c during BP assessment pt became unresponsive, rapid response called and provided assist with further assessment. Pt is unsafe at this time to return home. Will continue to assess progress in pm if safe and stable vitals w/ cGT with . Goals Bed Mobility Goal Independent Transfer Goal Independent,Front Wheeled Walker Gait Goal Independent,Front Wheel Walker Gait Distance 150 Other Goals up/dpwn platform walker using FWW CGA up/down 1 steps using SPC/DATABASE ADMINISTRATION ASSOCIATE min A Days to Meet Goals 5 Frequency of Treatment Frequency Of Treatment Twice a Day Treatment Plan Physical Therapy Treatment Plan Bed Mobility Training,Transfer Training,Gait Training, Therapeutic Exercise,Balance Retraining,Post Op Education, Discharge Planning,Hot or Cold Pack,Neuromuscular Re-ed, Coordination Retraining,Manual Therapy Other Recommendations and Next Treatment Assess orthostatic vitals, bed Focus mob, transfers, gait further distance if stable BP and 2 PF step mgt (has to enter garage home vs front 2 steps no HR and 1 small PF threshold) Weight Bearing Status Weight Bearing Status Weight Bear as Tolerated Allowed Weight Bearing Amount (enter % RLE WBAT or #) (%) Recommendations To Nursing Amount of Assist Needed 1 Person Assist Discharge Recommendations PT Discharge Recommendations Home with Assistance,Home with 24/ Assist Available, Outpatient PT Transportation Needs at Discharge Private Vehicle,Wheelchair/ Cabulance
[2021-06-15] MEDS: ENOXAPARIN 40 MG/0.4 ML SYRINGE SUBCUT (10:17)
--- NOTE | 2021-06-15 10:30 | CM.DANOTE ---
Addendum entered by Ranjana Sesay R.N. 06/15/21 15:59: Spoke to Vinod at [facility] about patient, he will review, and confirm that she is currently on their services for nursing. Original Note: DCP: Case received, EMR reviewed and met with patient. Introduced self and role. Was able to obtain information regarding patient's baseline activity status prior to her surgery. DCP assessment completed with information currently available. Patient is a 75 year old female who admitted yesterday morning to the care of the orthopedic team. PCP: Dr. Guerrero. Payer: confirmed: Medicare. Patient came to the hospital for a surgical procedure. Patient had total knee surgery. Patient has history of osteoarthritis of her knee. Met with patient in her room. She was sitting up in her chair. She is alert and oriented. She resides in [place] with her spouse, Robert. She stated that at her baseline, she uses a cane/walking stick. She stated that she is currently under [facility] services for her INRs, since she is on Coumadin. She is hopeful to continue with them. P: Patient was initially to discharge home today, but at this time, is uncertain, as she has an episode when she was working with P.T. Will continue to follow, and if she does discharge, will update [facility]. Ranjana Sesay RN/Infusion Therapy Nurse Discharge Planning/Care Management CM Discharge Assessment Start: 06/15/21 10:21 Freq: Status: Active Protocol: Document 06/15/21 10:21 (Rec: 06/15/21 10:30 [id number]) Discharge Planning Assessment Assigned Voice Intercept Technician Ranjana Sesay RN/Infusion Therapy Nurse Advance Directives? Yes Advance Directives on File No History Provided By Patient,Medical Record Has Patient been admitted in last 30 No days? Prior Living Arrangements House Household Members spouse Type of transporation used prior to Drives own vehicle admit Independent with ADL's Yes Is patient alert and oriented? Yes Caregiver for Another No Barriers to Discharge No Discharge Plan Home Transportation Arrangement Spouse Referrals Initiated Home Health Additional Comment Patient has been established with [facility], per patient. Whiteboard Updated in Patient Room with Yes name and ext. # of Voice Intercept Technician Review Status In Process Next Review Type Continued Stay Review Pre-Anesthesia Assessment Start: 05/30/21 11:51 Freq: Status: Active Protocol: Document 06/08/21 14:14 [facility] (Rec: 05/30/21 12:28 CAB [id number]) Pre-Anesthesia Assessment Preferred Name Pastora Patient Information Reviewed Via Phone Assessment Assessment Completed With Patient Comment Labs/ECG done per pt, not here , COVID screen needs to schedule Primary Care Provider Benigno Richard Seen Specialist in Last 12 Months Yes Specialist Seen Workers Compensation Analyst,Orthopedist Primary Language [place] Dock Boss Required No Height 5 ft 9 in Weight 230 lb Body Mass Index (BMI) 34.0 Hearing Ability Normal Visual Assist Magnifying Glass Dentition Type Teeth, Natural Present Barriers to Learning None Hx Anesthesia Reactions No Hx Family Anesthesia Reaction No Hx Malignant Hyperthermia No Hx Blood Transfusions No Hx Blood Transfusion Reaction n/a Anesthesia Review Requested Yes: Surgeon requested re: Cardiac alcohol intake current alcohol intake frequency holidays/special occasions only Smoking Status Former smoker how long ago did patient quit smoking Quit 40 years ago Substance Use Type does not use Pain Present Pain Reported Musculoskeletal Symptoms Abnormal Gait,Difficulty Walking,Joint Pain History of Falling (Recent or History of No ) Patient is completely paralyzed or No completely immobile Prosthesis or Orthotic Device Cane Mental Status Oriented to own ability Is patient on oxygen? No Does patient have CORTÉS/SOB Yes: CORTÉS Hx Sleep Apnea No CPAP/BIPAP use not prescribed Currently Taking a Beta Clara Yes: Carvedilol Can You Climb a Flight of Stairs Without No SOB Hx Chest Pain No Hx SOB Yes: CORTÉS Hx Syncope or Dizziness Yes: r/t metoprolol, now resolved Anti-Coagulant Therapy Yes: Warfarin-advised to hold 7 days prior per Cardiology Has a Workers Compensation Analyst Yes: Dr. Lira-visit 11/14/20 Cardiac Testing Yes: Stress test @ [facility] 05/18/21 Hx Pacemaker/ICD No Pacemaker Rep Required? No Cardiac Clearance Received Yes Comment Cardiac records scanned Diet Type At Home Regular dysphagia No Urinary Catheter Present No Hx Urinary Self Catheterization No Diabetes No Patient No Lactating No Hx Drug Resistant Organism No Presence of External or Internal Medical Yes: left knee replacement, Devices left breast biopsy marker, [place]itt eye IOLs Have you had any close contact with No someone diagnosed with COVID-19? Received a COVID vaccine? Yes Received all doses? Yes Marital Status Lives With spouse Prior Living Arrangements House Number of Floors (Floors) One Floor Support System Spouse Does the Patient Have Assistance After Yes Surgery Patient Discharge Plan Description Return Home Comment Pt advised overnight length of stay per surgeon Feels Safe in Current Environment Yes Been Physically Hurt or Threatened By a No Person in Current Environment Do you have thoughts of harming yourself None or others? Are you currently considering suicide? No Do you have a plan to hurt yourself or No Plan others? Do You Have Any Spiritual Beliefs That No May Affect Your HC Choices? Do You Have Any Cultural Practices That No May Affect Your HC Choices? Comment Pentecostalism Who Can We Speak to About Patient's Care Family, friends Identifying Code for Release of Patient Declines to issue Information Health Care Proxy/Next of Kin Pranav () Health Care Proxy Emergency Contact Name Pranav () Emergency Contact Advance Directives? Yes Advance Directives on File No Requested Patient Bring Advanced Yes Directives DOS Power of Rice Drier Yes Power of Rice Drier Name Pranav () Power of Rice Drier PAC Instructions Do not shave/clip surgical site,Durable medical equipment ,Medications to take/avoid, Nasal antibiotic,No ETOH/ petroleum product on skin DOS, NPO,Pre-surgical wash,Sensory aids,Sturdy shoes/comfortable clothes,Do not bring valuables and remove jewelry
--- NOTE | 2021-06-15 13:02 | PC.NURSE ---
Addendum entered by Leann Smalls R.N. 06/15/21 17:29: Pt sitting in chair for dinner w/o incidence. AUGUST Dsg remains CDI Hemavac D/C'd earlier today, dsg CDI Call light w/in reach, bed alarm on for pt safety. Continue w/plan of care. Addendum entered by Leann Smalls R.N. 06/15/21 13:08: Med w/Oxycodone for discomfort w/ good relief. Original Note: Pt A/O, Lungs cleart, SpO2 97% RA Dsg to right knee CDI. Hemavac intact/patent. At 0930ish, pt working w/PT. Had a syncopal episode. Pt sat in W/C; used kasey to assist back to bed after pt more alert. Discharge cancelled at this time due to distance to home WIll continue to assess and reevaluate in morning. Call light w/in reach, pt calls appropriately for needs.
--- NOTE | 2021-06-15 15:55 | PT.IPTN ---
Current Diagnoses Unilateral primary osteoarthritis, right knee (06/15/21) Presence of right artificial knee joint (06/15/21) Surgery Performed Operation Date: 06/14/21 07:45 Actual Procedures p Total Knee Arthroplasty(Right) - Carolann Trujillo MD Physical Therapy Treatment Note M2 PT-IP Current Condition Start: 06/14/21 15:56 Freq: NEEDED Status: Active Protocol: Document 06/15/21 09:05 SP (Rec: 06/15/21 10:12 SP [id number]) Physical Therapy Current Condition Current Condition Evaluation Date 06/14/21 Treatment Diagnosis s/p R TKA; difficulty in walking Onset Date 06/14/21 M3 PT-IP Subjective Start: 06/14/21 15:56 Freq: NEEDED Status: Active Protocol: Document 06/15/21 15:30 KS (Rec: 06/15/21 16:18 KS [id number]) Subjective Physical Therapy Visit Type Type Treatment Note Visit Start Time 15:30 Visit Stop Time 15:55 Total Visit Minutes 25 Notes Pt not orthostatic this PM. Physical Therapy Visit Comments Patient Comments Pt agreed to working with therapy. Patient Goals Return home with to assist her. M4 PT-IP Mobility and Gait Start: 06/14/21 15:56 Freq: NEEDED Status: Active Protocol: Document 06/15/21 15:30 KS (Rec: 06/15/21 16:18 KS [id number]) PT-Bed Mobility Assessment Supine to Sit Supine to Sit Standby Assistance Sit to Supine Sit to Supine Standby Assistance Scooting Scooting to Edge of Bed Standby Assistance PT-Transfer Assessment Sit to and From Stand Sit to and from Stand Contact Guard Assistance,1 Person Assistance,Use of Upper Extremities Equipment Transfer Assistive Device Gait Belt,Front Wheeled Walker Orthotic/Prosthetic Devices or Brace: No Transfers Transfer Destination Bed Transfer Technique pt ambulated using FWW Transfer Ability Level of Assist Contact Guard Assistance,1 Person Assistance,Use of Upper Extremities Comments Mobility Comments Pt in bed upon arrival and requesting to use bathroom. SBA for sup<>sit and scooting EOB. CGA and cues for hand placement for sit<>Stand w/ FWW. Pt denied dizziness or lightheadedness. Pt then ambulated ~12 ft to toilet, able to doff own briefs and sit on toilet CGA w/ cues of grab bar. CGa for sit<>Stand and pt ambulated additional 12 ft back to bed, refused further ambulation. SBA for sit<>sup. Reveiwed LE exercises to promote blood flow and strengthening including ankle pumps, quad sets, glute sets, SLR, and heel slides. Pt w/ increased pain and difficulty performing heel slides. Pt left in bed w / alarm and SCDs on and all needs in reach. Agreeable to transfer to chair w/ nursing staff for dinner and RN aware. Gait Assessment Gait Gait Assistance Required: Contact Guard Assist,1 Person Assist Distance (Feet) 24 Assistive Devices Assistive Device Gait Belt,Front Wheeled Walker Orthotic/Prosthetic Devices or Brace: No Gait Deviations General Gait Pattern Antalgic,Decreased Feet Clearance,Step-to Gait Factors Limiting Gait Function Factors Limiting Gait Function Decreased Activity Tolerance, Decreased Strength,Pain,Poor Balance Comments Gait Comments Pt ambulated 12 ft to and from bathroom w/ FWW CGA w/ step to gait and decreased foot clearance. Stair Climbing Assessment Comments Stair Climbing Comments Plan to assess tomorrow. PT-Balance Assessment Sitting Balance and Reactions Static Sitting Balance Ability Good Dynamic Sitting Balance Ability Good Standing Balance and Reactions Static Standing Balance Ability Good Dynamic Standing Balance Ability Fair Device Used FWW M5 PT-IP Objective Assessments Start: 06/14/21 15:56 Freq: NEEDED Status: Active Protocol: Document 06/14/21 14:15 AB (Rec: 06/14/21 16:08 AB [id number]) Orientation Orientation/Cognition Level of Alertness Alert Orientation Name,Place,Situation Language Function Ability No Deficits Noted Safety Awareness Decreased Safety Awareness Memory Description Short Term Impaired Gross Range of Motion Lower Extremity ROM Assessment Right Impaired Impairments R flexion ~ 70 deg with c/o pain Strength Lower Extremity Strength Assessment Right Impaired Hip 4-/5 Knee 3+/5 Sensation Assessment Sensation Gross Sensation WNL Muscle Tone Muscle Tone WNL Yes M6 PT-IP Treatment Start: 06/14/21 15:56 Freq: NEEDED Status: Active Protocol: Document 06/15/21 15:30 KS (Rec: 06/15/21 16:18 KS [id number]) Physical Therapy Treatment Exercises Exercises Ankle Pumps,Gluteal Sets,Quad Sets,Heel Slides,Straight Leg Raises Education Education Provided Precautions,Weight Bearing Status,Post-Op Packet,Safety M7 PT-IP Assessment and Plan Start: 06/14/21 15:56 Freq: NEEDED Status: Active Protocol: Document 06/15/21 15:30 KS (Rec: 06/15/21 16:18 KS [id number]) PT Summary Assessment and Plan Potential Rehabilitation Potential Good Status of Condition at Evaluation Evolving Summary Impairments Pain,ROM,Strength,Balance, Coordination,Sensation,Tone, Cognition,Bed Mobility, Transfers,Gait,Activity Tolerance Progress Towards Goals Slow Progress due to Medical Issues,Slow Progress due to Activity Tolerance Assessment Summary Pt SBA for bed mobility, CGA for transfers and ambulation. Pt ambulated 25 ft w/ FWW CGA. She did not wish to ambulate further this PM due to event this AM but is agreeable to complete stair training and caregiver training tomorrow morning. Goals Bed Mobility Goal Independent Transfer Goal Independent,Front Wheeled Walker Gait Goal Independent,Front Wheel Walker Gait Distance 150 Other Goals up/dpwn platform walker using FWW CGA up/down 1 steps using SPC/CHARTER BUS DRIVER min A Days to Meet Goals 5 Frequency of Treatment Frequency Of Treatment Twice a Day Treatment Plan Physical Therapy Treatment Plan Bed Mobility Training,Transfer Training,Gait Training, Therapeutic Exercise,Balance Retraining,Post Op Education, Discharge Planning,Hot or Cold Pack,Neuromuscular Re-ed, Coordination Retraining,Manual Therapy Other Recommendations and Next Treatment Assess orthostatic vitals, bed Focus mob, transfers, gait further distance if stable BP and 2 PF step mgt (has to enter garage home vs front 2 steps no HR and 1 small PF threshold) Weight Bearing Status Weight Bearing Status Weight Bear as Tolerated Allowed Weight Bearing Amount (enter % RLE WBAT or #) (%) Recommendations To Nursing Amount of Assist Needed 1 Person Assist Discharge Recommendations PT Discharge Recommendations Home with Assistance,Home with 24/7 Assist Available, Outpatient PT Transportation Needs at Discharge Private Vehicle,Wheelchair/ Cabulance
[2021-06-15] MEDS: ACETAMINOPHEN 325 MG TABLET 650 MG PO ×2 (16:04→20:31)
[2021-06-15] MEDS: carvediloL 12.5 MG TABLET PO (20:30)
[2021-06-15] MEDS: LOSARTAN 25 MG TABLET PO (20:30)
[2021-06-15] MEDS: DOCUSATE 100 MG CAPSULE PO (20:30)
[2021-06-15] MEDS: WARFARIN 5 MG TABLET PO (20:31)
[2021-06-16] VITALS (15 sets, daily range): BP systolic 86–169; BP diastolic 49–89; PULSE 66–107; RESP 14–21; TEMP 35.9–36.6; O2SAT 94–99
[2021-06-16] MEDS: SODIUM CHLORIDE 0.9% FLUSH 10 ML IV ×3 (00:20→20:50)
[2021-06-16] MEDS: IBUPROFEN 400 MG TABLET PO ×6 (00:22→20:50)
--- NOTE | 2021-06-16 05:57 | PC.NURSE ---
0520 Pt. requested to get up to the bedside commode C/O dizziness. Put her back to bed rechecked her B/P 86/50, 89/51, HR 70 & 99/68, HR 94. Reported feels a little better not dizzy anymore. Instructed pt. to use the bedpan for now. Will monitor.
[2021-06-16] MEDS: ACETAMINOPHEN 325 MG TABLET 650 MG PO ×3 (08:57→20:51)
[2021-06-16] MEDS: DOCUSATE 100 MG CAPSULE PO ×2 (08:57→20:50)
--- NOTE | 2021-06-16 10:44 | PT.IPTN ---
Current Diagnoses Unilateral primary osteoarthritis, right knee (06/15/21) Presence of right artificial knee joint (06/15/21) Surgery Performed Operation Date: 06/14/21 07:45 Actual Procedures p Total Knee Arthroplasty(Right) - Carolann Trujillo MD Physical Therapy Treatment Note M2 PT-IP Current Condition Start: 06/14/21 15:56 Freq: NEEDED Status: Active Protocol: Document 06/15/21 09:05 SP (Rec: 06/15/21 10:12 SP [id number]) Physical Therapy Current Condition Current Condition Evaluation Date 06/14/21 Treatment Diagnosis s/p R TKA; difficulty in walking Onset Date 06/14/21 M3 PT-IP Subjective Start: 06/14/21 15:56 Freq: NEEDED Status: Active Protocol: Document 06/16/21 10:20 KS (Rec: 06/16/21 11:58 KS [id number]) Subjective Physical Therapy Visit Type Type Treatment Note Visit Start Time 10:20 Visit Stop Time 10:44 Total Visit Minutes 24 Notes Pts spouse present. Physical Therapy Visit Comments Patient Comments Pt agreed to working with therapy. Patient Goals Return home with to assist her. M4 PT-IP Mobility and Gait Start: 06/14/21 15:56 Freq: NEEDED Status: Active Protocol: Document 06/16/21 10:20 KS (Rec: 06/16/21 11:58 KS [id number]) PT-Bed Mobility Assessment Supine to Sit Supine to Sit Standby Assistance Sit to Supine Sit to Supine Standby Assistance Scooting Scooting to Edge of Bed Standby Assistance PT-Transfer Assessment Comments Mobility Comments Pt in bed upon arrival w/ HOB elevated and BP: 107/63. SBA for sup<>sit w/ HOB elevated and pt reported lighheadedness . Pt requested to sit EOB to adjust and she was able to maintain seated balance ~5 min but lightheadedness began to worsen. Attempted BP reading while pt seated EOB, but pt unable to tolerate and wanting to lay down, BP: 90/72. RN aware. Gait Assessment Comments Gait Comments Unable to assess. Symptomatic low BP. PT-Balance Assessment Sitting Balance and Reactions Static Sitting Balance Ability Good Dynamic Sitting Balance Ability Good Standing Balance and Reactions Static Standing Balance Ability Good Dynamic Standing Balance Ability Fair Device Used FWW M5 PT-IP Objective Assessments Start: 06/14/21 15:56 Freq: NEEDED Status: Active Protocol: Document 06/14/21 14:15 AB (Rec: 06/14/21 16:08 AB [id number]) Orientation Orientation/Cognition Level of Alertness Alert Orientation Name,Place,Situation Language Function Ability No Deficits Noted Safety Awareness Decreased Safety Awareness Memory Description Short Term Impaired Gross Range of Motion Lower Extremity ROM Assessment Right Impaired Impairments R flexion ~ 70 deg with c/o pain Strength Lower Extremity Strength Assessment Right Impaired Hip 4-/5 Knee 3+/5 Sensation Assessment Sensation Gross Sensation WNL Muscle Tone Muscle Tone WNL Yes M6 PT-IP Treatment Start: 06/14/21 15:56 Freq: NEEDED Status: Active Protocol: Document 06/16/21 10:20 KS (Rec: 06/16/21 11:58 KS [id number]) Physical Therapy Treatment Exercises Exercises Ankle Pumps,Gluteal Sets,Quad Sets,Heel Slides,Straight Leg Raises Education Education Provided Precautions,Weight Bearing Status,Post-Op Packet,Safety M7 PT-IP Assessment and Plan Start: 06/14/21 15:56 Freq: NEEDED Status: Active Protocol: Document 06/16/21 10:20 KS (Rec: 06/16/21 11:58 KS [id number]) PT Summary Assessment and Plan Potential Rehabilitation Potential Good Status of Condition at Evaluation Evolving Summary Impairments Pain,ROM,Strength,Balance, Coordination,Sensation,Tone, Cognition,Bed Mobility, Transfers,Gait,Activity Tolerance Progress Towards Goals Slow Progress due to Medical Issues,Slow Progress due to Activity Tolerance Assessment Summary Unable to progress ambulation or complete stair or caregiver training as planned this AM due to pts symptomatic low BP, however she is able to perform bed mobility w/ SBA and complete LE exercises in bed w/ improved tolerance. Goals Bed Mobility Goal Independent Transfer Goal Independent,Front Wheeled Walker Gait Goal Independent,Front Wheel Walker Gait Distance 150 Other Goals up/dpwn platform walker using FWW CGA up/down 1 steps using SPC/VISION REHABILITATION THERAPIST min A Days to Meet Goals 5 Frequency of Treatment Frequency Of Treatment Twice a Day Treatment Plan Physical Therapy Treatment Plan Bed Mobility Training,Transfer Training,Gait Training, Therapeutic Exercise,Balance Retraining,Post Op Education, Discharge Planning,Hot or Cold Pack,Neuromuscular Re-ed, Coordination Retraining,Manual Therapy Other Recommendations and Next Treatment Assess orthostatic vitals, bed Focus mob, transfers, gait further distance if stable BP and 2 PF step mgt (has to enter garage home vs front 2 steps no HR and 1 small PF threshold) Weight Bearing Status Weight Bearing Status Weight Bear as Tolerated Allowed Weight Bearing Amount (enter % RLE WBAT or #) (%) Recommendations To Nursing Amount of Assist Needed 1 Person Assist Discharge Recommendations PT Discharge Recommendations Home with Assistance,Home with 24/7 Assist Available, Outpatient PT Transportation Needs at Discharge Private Vehicle,Wheelchair/ Cabulance
--- NOTE | 2021-06-16 11:03 | PC.NURSE ---
Addendum entered by Tiara Stock R.N. 06/16/21 15:54: Second attempt, unable to tolerate ambulating. Dizziness with standing and hypotension. Dr. Trujillo made aware. [address] Veliz consulted, at bedside at 1555. Original Note: Day shift note: Patient up with PT, unable to tolerate OOB due to dizziness and hypotension 90/70, sat at edge of bed. Therapy held, will resume this afternoon. Notified, DANIELLE Morrell regarding event. Coreg to be held. Will encourage PO fluids. Patient voiding adequately. Asymptomatic at rest.
--- NOTE | 2021-06-16 12:18 | PT.IPTN ---
Current Diagnoses Unilateral primary osteoarthritis, right knee (06/15/21) Presence of right artificial knee joint (06/15/21) Surgery Performed Operation Date: 06/14/21 07:45 Actual Procedures p Total Knee Arthroplasty(Right) - Carolann Trujillo MD Physical Therapy Treatment Note M2 PT-IP Current Condition Start: 06/14/21 15:56 Freq: NEEDED Status: Active Protocol: Document 06/15/21 09:05 SP (Rec: 06/15/21 10:12 SP [id number]) Physical Therapy Current Condition Current Condition Evaluation Date 06/14/21 Treatment Diagnosis s/p R TKA; difficulty in walking Onset Date 06/14/21 M3 PT-IP Subjective Start: 06/14/21 15:56 Freq: NEEDED Status: Active Protocol: Document 06/16/21 12:00 KS (Rec: 06/16/21 12:40 KS [id number]) Subjective Physical Therapy Visit Type Type Treatment Note Visit Start Time 12:00 Visit Stop Time 12:18 Total Visit Minutes 18 Notes Pts spouse present. Physical Therapy Visit Comments Patient Comments Pt agreed to working with therapy. Patient Goals Return home with to assist her. M4 PT-IP Mobility and Gait Start: 06/14/21 15:56 Freq: NEEDED Status: Active Protocol: Document 06/16/21 12:00 KS (Rec: 06/16/21 12:40 KS [id number]) PT-Bed Mobility Assessment Sit to Supine Sit to Supine Standby Assistance Scooting Scooting to Edge of Bed Standby Assistance PT-Transfer Assessment Sit to and From Stand Sit to and from Stand Contact Guard Assistance,1 Person Assistance,Use of Upper Extremities Equipment Transfer Assistive Device Gait Belt,Front Wheeled Walker Orthotic/Prosthetic Devices or Brace: No Transfers Transfer Destination Bed,Bedside Commode Transfer Technique Stand Pivot Transfer Ability Level of Assist Contact Guard Assistance,1 Person Assistance,Use of Upper Extremities Comments Mobility Comments Pt sitting EOB upon arrival and BP 134/81 and pt requesting to use BSC. BP in standing 125/71 and pt reporting that she can tell her BP dropped but is okay. Pt transferred to BSC stand step pivot w/ FWW and after voiding, pt stood again and BP : 101/61 and pt reported dizziness and requested to lay back down. SBA for sit<>sup. Pt left in bed w/ alarm on and all needs in reach. Gait Assessment Comments Gait Comments CGA stand step pivot only. Stair Climbing Assessment Comments Stair Climbing Comments Plan to assess tomorrow when not hypotensive. PT-Balance Assessment Sitting Balance and Reactions Static Sitting Balance Ability Good Dynamic Sitting Balance Ability Good Standing Balance and Reactions Static Standing Balance Ability Good Dynamic Standing Balance Ability Fair Device Used FWW M5 PT-IP Objective Assessments Start: 06/14/21 15:56 Freq: NEEDED Status: Active Protocol: Document 06/14/21 14:15 AB (Rec: 06/14/21 16:08 AB [email or web address]) Orientation Orientation/Cognition Level of Alertness Alert Orientation Name,Place,Situation Language Function Ability No Deficits Noted Safety Awareness Decreased Safety Awareness Memory Description Short Term Impaired Gross Range of Motion Lower Extremity ROM Assessment Right Impaired Impairments R flexion ~ 70 deg with c/o pain Strength Lower Extremity Strength Assessment Right Impaired Hip 4-/5 Knee 3+/5 Sensation Assessment Sensation Gross Sensation WNL Muscle Tone Muscle Tone WNL Yes M6 PT-IP Treatment Start: 06/14/21 15:56 Freq: NEEDED Status: Active Protocol: Document 06/16/21 12:00 KS (Rec: 06/16/21 12:40 KS [id number]) Physical Therapy Treatment Exercises Exercises Ankle Pumps Education Education Provided Precautions,Weight Bearing Status,Post-Op Packet,Safety M7 PT-IP Assessment and Plan Start: 06/14/21 15:56 Freq: NEEDED Status: Active Protocol: Document 06/16/21 12:00 KS (Rec: 06/16/21 12:40 KS [id number]) PT Summary Assessment and Plan Potential Rehabilitation Potential Good Status of Condition at Evaluation Evolving Summary Impairments Pain,ROM,Strength,Balance, Coordination,Sensation,Tone, Cognition,Bed Mobility, Transfers,Gait,Activity Tolerance Progress Towards Goals Slow Progress due to Medical Issues,Slow Progress due to Activity Tolerance Assessment Summary Again unable to progress gait or stair training due to pt being hypotensive. BP dropped from 134/81 sitting to 102/61 standing and pt dizzy. SBA for bed mobility, CGA for transfers. Will continue to progress when appropriate. Goals Bed Mobility Goal Independent Transfer Goal Independent,Front Wheeled Walker Gait Goal Independent,Front Wheel Walker Gait Distance 150 Other Goals up/dpwn platform walker using FWW CGA up/down 1 steps using SPC/FIELD TRAINING MANAGER min A Days to Meet Goals 5 Frequency of Treatment Frequency Of Treatment Twice a Day Treatment Plan Physical Therapy Treatment Plan Bed Mobility Training,Transfer Training,Gait Training, Therapeutic Exercise,Balance Retraining,Post Op Education, Discharge Planning,Hot or Cold Pack,Neuromuscular Re-ed, Coordination Retraining,Manual Therapy Other Recommendations and Next Treatment Assess orthostatic vitals, bed Focus mob, transfers, gait further distance if stable BP and 2 PF step mgt (has to enter garage home vs front 2 steps no HR and 1 small PF threshold) Weight Bearing Status Weight Bearing Status Weight Bear as Tolerated Allowed Weight Bearing Amount (enter % RLE WBAT or #) (%) Recommendations To Nursing Amount of Assist Needed 1 Person Assist Discharge Recommendations PT Discharge Recommendations Home with Assistance,Home with 23/10 Assist Available, Outpatient PT Transportation Needs at Discharge Private Vehicle,Wheelchair/ Cabulance
--- NOTE | 2021-06-16 13:17 | CM.DPC ---
DCP Cont: Checked in with patient. She was sitting up in bed. Stated, she worked with [employer], but was dizzy, she was having some blood pressure issues. She hopes to go home tomorrow. Patient [place] that [place] [employer] [place] been ordered, asked her if she wanted a bath aide, and she stated, she does not think that she will need. Let her know that this inventory control planner will order RN, P.T, and O.T. P: DCP to continue to follow. Plan is home, most likely tomorrow as long as blood pressures are stable, with [facility]. Will send them orders, face to face, and DC summary upon discharge. Ranjana Sesay RN/Technical Systems Architect
[2021-06-16] MEDS: SODIUM CHLORIDE 0.9% 500 ML IV (13:57)
[2021-06-16] MEDS: carvediloL 12.5 MG TABLET PO (17:13)
--- NOTE | 2021-06-16 18:22 | P.HP_ITS ---
History of Present Illness History of Present Illness Date Patient Seen: 06/16/21 Chief complaint: R TKA *OPB* Narrative: The patient is a 75-year-old female with a history of chronic persistent atrial fibrillation, idiopathic cardiomyopathy, hypertension, status post right knee arthroplasty I am asked to evaluate for orthostatic hypotension. The patient underwent a right total knee arthroplasty on 06/14/2021. She typically takes carvedilol 12.5 mg twice daily in addition to losartan 25 mg daily. Patient received her usual medications as she takes at home previously. Postoperatively when trying to ambulate and work with physical therapy she was noted to be dizzy, orthostatic vital signs were obtained and revealed her blood pressure dropped from 112/49 to 109/55. She was somewhat dizzy associated with this. The patient received 500 cc of normal saline. Repeat blood pressures today reveal her blood pressure is 142/89 lying with a pulse of 98, 169/88 with a pulse of 105. Patient's Coreg was held this morning, she no longer is feeling dizzy. Of note the patient reports history of orthostatic hypotension during her prior surgery. She is somewhat sensitive to medications. Her Coreg was increased from 6.25 twice daily to 12.5 daily about 1 month ago. Patient is ly ing in bed asymptomatic at this time. Patient History Medical History Afib Cardiomyopathy Diverticulitis Diverticulosis Easy bruisability Eczema HTN (hypertension) Surgical History History of total left knee replacement (2012) Hx of bilateral cataract extraction Hx of left breast biopsy Hx of tonsillectomy Hx of varicose vein stripping Family & Social History Social History: household members spouse Prior Living Arrangements House Safety & Behavioral: Feels Safe in Current Yes Environment Been Physically Hurt or No Threatened By a Person Suicidal Ideation Description None Suicide Plan Description No Plan Tobacco & Substance use: Smoking Status Former smoker alcohol intake current alcohol intake frequency a few times a week Substance Use Type does not use Meds Home Medications and Allergies Home Medications Medication Instructions Recorded Confirmed Type warfarin 5 mg tablet 5 mg PO BEDTIME 12/19/18 06/14/21 History acetaminophen 500 mg capsule 500 - 1,000 mg PO DAILY PRN 05/30/21 06/14/21 History carvedilol 12.5 mg tablet 12.5 mg PO BID 05/30/21 06/14/21 History losartan 25 mg tablet 25 mg PO BEDTIME 05/30/21 06/14/21 History docusate sodium 100 mg capsule 100 mg PO BID PRN #60 cap 06/15/21 Rx enoxaparin 40 mg/0.4 mL 40 mg (0.4 mL) SUBCUT DAILY #1.6 ml 06/15/21 Rx subcutaneous syringe oxycodone 5 mg tablet 5 mg PO Q4H PRN #60 tab 06/15/21 Rx Allergies Allergy/AdvReac Type Severity Reaction Status Date / Time Penicillins Allergy Unknown unknown-as Verified 05/30/21 12:09 a child clindamycin AdvReac Severe stomach Verified 01/02/19 12:04 cramps metoprolol AdvReac Intermediate Dizziness, Verified 05/30/21 12:09 syncope Review of Systems Review of Systems Narrative: Ten point review of systems is negative Exam Vital Signs (past 8 hours): - 06/16/21 11:00 06/16/21 15:00 06/16/21 15:30 Temperature 97.9 F 96.6 F L 96.6 F L Pulse Rate 82 68 66 Respiratory Rate 20 14 14 Blood Pressure 106/65 112/49 L 109/55 L Pulse Oximetry 97 94 98 06/16/21 16:00 06/16/21 16:04 06/16/21 16:09 Temperature Pulse Rate 93 H 98 H 105 H Respiratory Rate Blood Pressure 120/73 142/89 H 169/88 H Pulse Oximetry 06/16/21 16:17 06/16/21 17:13 Temperature 96.8 F L Pulse Rate 90 105 H Respiratory Rate 18 Blood Pressure 120/73 169/88 H Pulse Oximetry 98 Oxygen Delivery Method Room Air Oxygen Flow Rate 0 Narrative Exam Narrative: Pleasant female lying in bed in no obvious distress Resp Other: Lungs clear to auscultation Cardio Other: Cardiac exam: Regular rate rhythm normal S1-S2 GI Other: Abdomen: Soft nontender nondistended Extrem Other: Right knee dressing in place Objective Labs Result Diagrams: 06/15/21 05:20 Assessment & Plan Assessment & Plan narrative: 75-year-old female with chronic persistent atrial fibrillation, idiopathic cardiomyopathy, status post right total knee arthroplasty with orthostatic hypotension * Patient's orthostatic hypotension resolved with IV hydration * She is not significantly anemic which is not contributing * Given her chronic persistent atrial fibrillation need for rate control would resume her Coreg at 12.5 twice daily * Given her idiopathic cardiomyopathy and elevated blood pressure would also resume her losartan at 25 mg twice daily * Orthostasis appears to be resolved. Given her underlying cardiac issues would resume her usual medication * Would continue to monitor blood pressure while she is here in the hospital * Suspect orthostasis related to volume shifts during surgery but no significant clinical concern at this point * * Thank you very much for this consultation. * I anticipate the patient will discharge home tomorrow on her usual medicat ions. Time Spent With Patient Critical Care time: I spent a total of [] minutes of critical care time on this patient's care t paul; this time is exclusive of procedural time.
[2021-06-16] MEDS: OXYCODONE IR 5 MG TABLET PO (20:51)
[2021-06-16] MEDS: WARFARIN 5 MG TABLET PO (20:51)
[2021-06-16] MEDS: LOSARTAN 25 MG TABLET PO (20:51)
[2021-06-17 00:26] VITALS: BP 113/64; PULSE 68; RESP 16; TEMP 35.8; O2SAT 95
[2021-06-17] MEDS: IBUPROFEN 400 MG TABLET PO ×3 (03:11→12:09)
[2021-06-17 04:53] VITALS: BP 136/60; PULSE 98; RESP 16; TEMP 36.1; O2SAT 100
[2021-06-17 06:24] LABS: Hematocrit 29.5 % (36-46); Hemoglobin 10.3 g/dL (12.0-16.0)
[2021-06-17 06:26] LABS: INR 1.4 (0.9-1.3); Prothrombin Time 16.4 SECONDS (10.1-12.7)
--- NOTE | 2021-06-17 06:55 | PC.NURSE ---
Pt. did well last night up to the bedside commode number to times. Did not C/O dizziness, reports feels much better today. Will report to day RN.
[2021-06-17 09:00] VITALS: BP 117/67; PULSE 101; RESP 20; TEMP 36.2; O2SAT 99
[2021-06-17] MEDS: ENOXAPARIN 40 MG/0.4 ML SYRINGE SUBCUT (09:32)
[2021-06-17] MEDS: DOCUSATE 100 MG CAPSULE PO (09:35)
[2021-06-17] MEDS: ACETAMINOPHEN 325 MG TABLET 650 MG PO (09:35)
[2021-06-17 09:36] VITALS: BP 117/67; PULSE 101
[2021-06-17] MEDS: carvediloL 12.5 MG TABLET PO (09:36)
--- NOTE | 2021-06-17 09:57 | PT.IPTN ---
Current Diagnoses Acute posthemorrhagic anemia (06/15/21) Obesity, unspecified (06/15/21) Unilateral primary osteoarthritis, right knee (06/15/21) residential (current) use of anticoagulants (06/15/21) Presence of right artificial knee joint (06/15/21) Surgery Performed Operation Date: 06/14/21 07:45 Actual Procedures p Total Knee Arthroplasty(Right) - Carolann Trujillo MD Physical Therapy Treatment Note M2 PT-IP Current Condition Start: 06/14/21 15:56 Freq: NEEDED Status: Active Protocol: Document 06/15/21 09:05 SP (Rec: 06/15/21 10:12 SP [id number]) Physical Therapy Current Condition Current Condition Evaluation Date 06/14/21 Treatment Diagnosis s/p R TKA; difficulty in walking Onset Date 06/14/21 M3 PT-IP Subjective Start: 06/14/21 15:56 Freq: NEEDED Status: Active Protocol: Document 06/17/21 09:34 KS (Rec: 06/17/21 13:27 KS [id number]) Subjective Physical Therapy Visit Type Type Treatment Note Visit Start Time 09:34 Visit Stop Time 09:57 Total Visit Minutes 23 Notes Pts spouse present for caregiver training. Physical Therapy Visit Comments Patient Comments Pt agreed to working with therapy. Patient Goals Return home with to assist her. M4 PT-IP Mobility and Gait Start: 06/14/21 15:56 Freq: NEEDED Status: Active Protocol: Document 06/17/21 09:34 KS (Rec: 06/17/21 13:27 KS [id number]) PT-Bed Mobility Assessment Supine to Sit Supine to Sit Standby Assistance Sit to Supine Sit to Supine Standby Assistance Scooting Scooting to Edge of Bed Standby Assistance PT-Transfer Assessment Sit to and From Stand Sit to and from Stand Contact Guard Assistance,1 Person Assistance,Use of Upper Extremities Equipment Transfer Assistive Device Gait Belt,Front Wheeled Walker Orthotic/Prosthetic Devices or Brace: No Transfers Transfer Destination Bed Transfer Technique Pt ambulated w/ FWW Transfer Ability Level of Assist Contact Guard Assistance,1 Person Assistance,Use of Upper Extremities Comments Mobility Comments Pt in bed upon arrival and spouse present for caregiver training. SBA for sup<>sit and scooting EOB. Pts spouse able to apply gait belt and CGA for sit<>Stand w/ FWW. Pt then ambulated ~15 ft to platform step and completed w/ CGA and cues, she completed second platform step w/ FWW CGA from spouse and no cues needed. She ambulated additional 15 ft back to bed. Reveiwed home exercises and safety. Pt and spouse state they feel safe to return home. Gait Assessment Gait Gait Assistance Required: Standby Assistance,Contact Guard Assist,1 Person Assist Distance (Feet) 30 Assistive Devices Assistive Device Gait Belt,Front Wheeled Walker Orthotic/Prosthetic Devices or Brace: No Gait Deviations General Gait Pattern Antalgic,Decreased Feet Clearance,Step-to Gait Factors Limiting Gait Function Factors Limiting Gait Function Decreased Activity Tolerance, Decreased Strength,Pain,Poor Balance Comments Gait Comments Pt ambulated ~30 ft today w/ FWW CGA w/ cues for equal step length and heel toe walking. Stair Climbing Assessment Evaluation Level of Assist On Stairs Contact Guard Assistance Devices Stair Climbing Assistive Devices Front Wheel Walker Technique/Endurance Stair Climbing Direction Ascend and Descend Stair Climbing Technique Step to Step Number of Steps Climbed 1 Stair Climbing Set # Repetitions (reps) 2 Comments Stair Climbing Comments Pts spouse able to provide CGA for pt ascending/descending platform step w/ FWW. Pt and spouse state they feel safe to ascend step going into home. PT-Balance Assessment Sitting Balance and Reactions Static Sitting Balance Ability Good Dynamic Sitting Balance Ability Good Standing Balance and Reactions Static Standing Balance Ability Good Dynamic Standing Balance Ability Fair Device Used FWW M5 PT-IP Objective Assessments Start: 06/14/21 15:56 Freq: NEEDED Status: Active Protocol: Document 06/14/21 14:15 AB (Rec: 06/14/21 16:08 AB [id number]) Orientation Orientation/Cognition Level of Alertness Alert Orientation Name,Place,Situation Language Function Ability No Deficits Noted Safety Awareness Decreased Safety Awareness Memory Description Short Term Impaired Gross Range of Motion Lower Extremity ROM Assessment Right Impaired Impairments R flexion ~ 70 deg with c/o pain Strength Lower Extremity Strength Assessment Right Impaired Hip 4-/5 Knee 3+/5 Sensation Assessment Sensation Gross Sensation WNL Muscle Tone Muscle Tone WNL Yes M6 PT-IP Treatment Start: 06/14/21 15:56 Freq: NEEDED Status: Active Protocol: Document 06/17/21 09:34 KS (Rec: 06/17/21 13:27 KS [id number]) Physical Therapy Treatment Exercises Exercises Ankle Pumps,Gluteal Sets,Quad Sets,Heel Slides,Straight Leg Raises Education Education Provided Precautions,Weight Bearing Status,Post-Op Packet,Safety Other Treatments Other Treatment Performed Completed caregiver training M7 PT-IP Assessment and Plan Start: 06/14/21 15:56 Freq: NEEDED Status: Active Protocol: Document 06/17/21 09:34 KS (Rec: 06/17/21 13:27 KS [id number]) PT Summary Assessment and Plan Potential Rehabilitation Potential Good Status of Condition at Evaluation Evolving Summary Impairments Pain,ROM,Strength,Balance, Coordination,Sensation,Tone, Cognition,Bed Mobility, Transfers,Gait,Activity Tolerance Progress Towards Goals Slow Progress due to Medical Issues,Slow Progress due to Activity Tolerance Assessment Summary Pt able to complete caregiver training w/ her today who was able to provide appropriate assist w/ transfers, ambulation, and platform step. Pt SBA for bed mobility. She had her state they feel safe to return home. She will benefit from HHPT to improve strength and mobility. Goals Bed Mobility Goal Independent Transfer Goal Independent,Front Wheeled Walker Gait Goal Independent,Front Wheel Walker Gait Distance 150 Other Goals up/dpwn platform walker using FWW CGA up/down 1 steps using SPC/VALVE SEATER OPERATOR min A Days to Meet Goals 5 Frequency of Treatment Frequency Of Treatment Twice a Day Treatment Plan Physical Therapy Treatment Plan Bed Mobility Training,Transfer Training,Gait Training, Therapeutic Exercise,Balance Retraining,Post Op Education, Discharge Planning,Hot or Cold Pack,Neuromuscular Re-ed, Coordination Retraining,Manual Therapy Other Recommendations and Next Treatment Assess orthostatic vitals, bed Focus mob, transfers, gait further distance if stable BP and 2 PF step mgt (has to enter garage home vs front 2 steps no HR and 1 small PF threshold) Weight Bearing Status Weight Bearing Status Weight Bear as Tolerated Allowed Weight Bearing Amount (enter % RLE WBAT or #) (%) Recommendations To Nursing Amount of Assist Needed 1 Person Assist Discharge Recommendations PT Discharge Recommendations Home with Assistance,Home with / Assist Available, Outpatient PT Transportation Needs at Discharge Private Vehicle,Wheelchair/ Cabulance
--- NOTE | 2021-06-17 10:02 | PM.PNPO.1 ---
Subjective Subjective Date Patient Seen: 06/17/21 Time Patient Seen: 09:00 Interval history: 'I feel much better today and want to go home.' Pt sitting up in bed, appears comfortable, voiding and eating without difficulty. Per PT, ok to go home w/ assistance available and outpt PT. Exam Vital Signs (past 8 hours): - 06/17/21 04:53 06/17/21 09:00 06/17/21 09:36 Temperature 97.0 F L 97.2 F L Pulse Rate 98 H 101 H 101 H Respiratory Rate 16 20 Blood Pressure 136/60 117/67 117/67 Pulse Oximetry 100 99 Oxygen Delivery Method Room Air Oxygen Flow Rate 0 Narrative Exam Narrative: 5/5 strength and intact sensation throughout BLE. Calves soft, compressible, nontender and without palpable cords or masses. AUGUST dressing CDI. Const General: cooperative and healthy appearing Orientation: alert, awake and oriented x3 Objective Labs Result Diagrams: 06/17/21 06:00 Labs: Laboratory Results - last 24 hr 06/17/21 06/17/21 06:00 06:00 Hgb 10.3 L Hct 29.5 L PT 16.4 H INR 1.4 H PFSH Medical History (Updated 06/17/21 @ 10:06 by Porsche Cunningham PA-C) Afib Cardiomyopathy Chronic anticoagulation Diverticulitis Diverticulosis Easy bruisability Eczema HTN (hypertension) Obesity (BMI 30.0-34.9) Surgical History History of total left knee replacement (2012) Hx of bilateral cataract extraction Hx of left breast biopsy Hx of tonsillectomy Hx of varicose vein stripping Social History household members: spouse Smoking Status: Former smoker alcohol intake: current Assessment & Plan Post-op Assessment and plan (1) Status post total knee replacement, right: Assessment and Plan narrative: Discharge home today, multimodal pain control, outpt PT. (2) Chronic anticoagulation: Assessment and Plan narrative: INR today 1.4, not therapeutic for a fib. Continue warfarin w/ additional enoxaparin until next f/u with anticoagulation clinic. (3) Acute postoperative anemia due to expected blood loss: Assessment and Plan narrative: Episodes of orthostatic hypotension have resolved. Continue Coreg and Losartan as at home per hospitalist recommendations. (4) Obesity (BMI 30.0-34.9): Postoperative Procedures: Procedures Operation Date: 06/14/21 07:45 Actual Procedure Side Surgeon p Total Knee Arthroplasty Right Carolann Trujillo MD Postoperative day: 3
--- NOTE | 2021-06-17 10:35 | CM.DPC ---
DCP Cont: Patient is discharging home today. Notified Vinod at [facility]. Faxed over face to face, orders, today's progress note, pending DC Summary. P: Patient is discharging home today with [facility]. Ranjana Sesay RN/[employer]
[2021-06-17] MEDS: OXYCODONE IR 5 MG TABLET PO (12:05)
--- NOTE | 2021-06-17 13:29 | PC.NURSE ---
Day shift: Pt left unit at approx 1330 via WC. Taken to car (spouse is driving) by [employer] TUTOR. Pt has all personal belongings. MD scripts went electronic to Pt's pharmacy. AUGUST dressing remains CDI and suction device is functioning proper. Paperwork signed and all questions answered.
== END 2021-06-17 13:34 | disposition home or self-care (01) ==
LOC: OR 13:56 → AC 13:57
PROVIDERS: Physician Assistant; Admitting Provider Orthopaedic Surgery; PCP Family Medicine; Referring Provider Student in an Organized Health Care Education/Training Program; Visit Provider Orthopaedic Surgery
PROC: 0SRC0JZ Replacement of Right Knee Joint with Synthetic Substitute, Open Approach (ICD-10-PCS; CPT 27447; principal; 2021-06-14 07:45)
DX: M17.11 Unilateral primary osteoarthritis, right knee (principal); I48.91 Unspecified atrial fibrillation; D62 Acute posthemorrhagic anemia; E66.9 Obesity, unspecified; Z79.01 Long term (current) use of anticoagulants; Z68.33 Body mass index [BMI] 33.0-33.9, adult; I95.1 Orthostatic hypotension
CPT/HCPCS: 27447; 36415; 73560; 85014; 85018; 85610; 97110; 97116; 97162; 97530; C1776; G0378; C1713; C9290; J0171; J0690; J1100; J1650; J2704; J3010

== ENCOUNTER → 2021-07-28 13:06 | Outpatient (CLI) | payer MEDICARE, OTHER, SELFPAY ==
[2021-06-14 11:55] VITALS: BMI 34.0
--- NOTE | 2021-07-28 | DI.US.S_ITS ---
PROCEDURE: US PERIPH VENOUS LOW EXTREM RT INDICATIONS: RIGHT CALF PAIN TECHNIQUE: Real-time imaging, as well as color and pulse Doppler interrogation, were performed of the lower extremity deep veins from the inguinal ligament to the popliteal fossa. COMPARISON: None. FINDINGS: The common femoral, femoral and popliteal veins are normally compressible, and free of intraluminal thrombus. Color and pulse Doppler demonstrate normal phasic intraluminal flow. There is normal augmentation response to distal compression maneuver. Minimal nonspecific edema identified in the right calf at the area of pain. IMPRESSION: No evidence of deep vein thrombosis involving the right lower extremity. Dictated by: Kalie Sun MD, PhD on 07/28/2021 at 14:43 Approved by: Kalie Sun MD, PhD on 07/28/2021 at 14:44
== END ==
PROVIDERS: PCP Family Medicine; Referring Provider Physician Assistant; Visit Provider Physician Assistant
DX: M79.661 Pain in right lower leg (principal)
CPT/HCPCS: 93971